=== PATIENT | female | born 1985 | race Caucasian/White ===

== ENCOUNTER 2020-11-19 11:05 | Emergency (ER) | payer SELFPAY ==
[2020-11-19 11:47] LABS: #Basophils 0.1 thou/uL (0.0-0.2); #Eosinphils 0.3 thou/uL (0.0-0.7); #Lymphocytes 3.2 thou/uL (1.20-3.40); #Monocytes 0.7 thou/uL (0.11-0.59); #Neutrophils 6.2 thou/uL (1.40-6.50); %Basophils 0.8 % (0.0-1.0); %Eosinophils 2.8 % (0.0-10.0); %Lymphocytes 30.5 % (21.0-51.0); %Monocytes 6.6 % (0.0-10.0); %Neutrophils 59.3 % (42.0-75.0); Hemoglobin 16.1 g/dL (12.0-16.0); Mean Corpuscular HGB CONC 32.2 g/dL (32.0-36.0); Mean Corpuscular Hemoglobin 28.9 pg (27.0-31.0); Mean Platelet Volume 6.8 fL (7.4-10.4); Platelet Count 371 thou/uL (130-400); RBC Distribution Width 12.3 % (11.5-14.5); Red Blood Cell (RBC) Count 5.57 mill/uL (4.20-5.40); White Blood Cell (WBC) Count 10.4 thou/uL (4.8-10.8)
[2020-11-19 11:53] LABS: Bilirubin Negative (Negative); Blood, Urine Trace (Negative); Clarity Slightly Cloudy (Clear); Glucose, Urine (Dipstick) Negative (Negative); Ketone, Urine Negative (Negative); Leukocyte Negative (Negative); Nitrite Negative (Negative); Protein, Urine (Dipstick) Negative (Neg-Trace); Urobilinogen 0.2 mg/dL (Less than 2)
[2020-11-19 11:56] LABS: Specific Gravity, Urine 1.021 (1.002-1.036)
[2020-11-19 11:57] LABS: Pregnancy Test - Urine (BHCG) Negative (Negative); Pregu Control Background? CLEAR/WHITE (CLR/WHITE); Pregu Control Bar Appear? YES (CONTROL BAR); Specific Gravity 1.021 (1.002-1.036)
[2020-11-19 12:03] LABS: Bacteria/HPF 1+ HPF (None Seen); Mucous/LPF 1+ LPF (<2+); RBC/HPF 0-3 HPF (0-3); Squamous Epithelial 0-3 HPF (0-3); WBC/HPF 0-3 HPF (0-3)
[2020-11-19 12:10] LABS: ALT (SGPT) 33 U/L (8-55); AST (SGOT) 17 U/L (5-34); Albumin 4.4 g/dL (3.5-5.0); Alkaline Phosphatase 88 U/L (40-110); Anion Gap 13 mmol/L (10-20); BUN (Urea Nitrogen) 8 mg/dL (7.0-18.7); Bilirubin, Total 0.4 mg/dL (0.2-1.2); Calc. Creatinine Clearance 0 mL/min (70-130); Calcium 9.2 mg/dL (7.8-10.44); Carbon Dioxide 25 mmol/L (22-29); Chloride 104 mmol/L (98-107); Globulin 3.5 g/dL (2.4-3.5); Glucose 87 mg/dL (70-105); Protein, Total 7.9 g/dL (6.0-8.3); Sodium 138 mmol/L (136-145)
[2020-11-19] MEDS ORDERED: Ondansetron PF 4 MG/2 ML Vial ONE (12:32)
[2020-11-19] MEDS ORDERED: Ketorolac Tromethamine 30 MG/ML VIAL ONE (12:32)
--- NOTE | 2020-11-19 14:14 | CT ---
CT ABDOMEN AND PELVIS WITH CONTRAST: 11/19/[address] was done for evaluation of right lower quadrant pain. The lung bases are clear. The liver, spleen, pancreas, adrenal glands, kidneys and abdominal aorta all appear normal. No gallbladde r was seen. The appendix was visualized and appears normal. There is no thickening of the colon or inflammatory c hange around it. The mid to distal small bowel was completely normal in size and thickness. A few loo ps of proximal jejunum were perhaps minimally thickened, but this is a marginal finding at breast, an d is also not at the site of the patient's pain. CT of the pelvis shows no pelvic masses or fluid collections. The right ovary is slightly larger than the left, but it otherwise appeared normal. There was no streaking around it or inflammatory change around it to allow the diagnosis of a torsion. No free fluid was seen. IMPRESSION: No acute abdominal or pelvic findings to explain the patient's pain. Findings discussed with Dr. Gonzalez at 1404 on 11/19/20. POS: HOME
== END 2020-11-19 14:22 | disposition home or self-care (01) ==
LOC: BURERS 11:05
DX: R10.31 Right lower quadrant pain (principal); F17.210 Nicotine dependence, cigarettes, uncomplicated
CPT/HCPCS: 74177; 80053; 81003; 81015; 81025; 83605; 85025; 87480; 87491; 87510; 87591; 87660; 96374; 96375; J1885; J2405

== ENCOUNTER 2022-08-26 10:19 | Emergency (ER) | payer SELFPAY ==
[2022-08-26] MEDS ORDERED: Iopamidol 370 76% 100 ML VIAL FS ONE (10:20)
[2022-08-26] MEDS ORDERED: Dicyclomine 20 MG TAB ONE (10:58)
[2022-08-26] MEDS ORDERED: Ondansetron PF 4 MG/2 ML Vial ONE (10:58)
[2022-08-26 11:03] LABS: #Basophils 0.1 thou/uL (0.0-0.2); #Eosinphils 0.3 thou/uL (0.0-0.7); #Lymphocytes 4.4 thou/uL (1.20-3.40); #Monocytes 0.7 thou/uL (0.11-0.59); #Neutrophils 6.4 thou/uL (1.40-6.50); %Eosinophils 2.5 % (0.0-10.0); %Lymphocytes 37.2 % (21.0-51.0); %Monocytes 5.7 % (0.0-10.0); %Neutrophils 53.6 % (42.0-75.0); Hemoglobin 17.6 g/dL (12.0-16.0); Mean Corpuscular HGB CONC 35.1 g/dL (32.0-36.0); Mean Corpuscular Hemoglobin 30.3 pg (27.0-31.0); Mean Corpuscular Volume 86.3 fL (78.0-98.0); Mean Platelet Volume 6.6 fL (7.4-10.4); Platelet Count 392 thou/uL (130-400); RBC Distribution Width 12.3 % (11.5-14.5); Red Blood Cell (RBC) Count 5.82 mill/uL (4.20-5.40); White Blood Cell (WBC) Count 11.8 thou/uL (4.8-10.8)
[2022-08-26 11:20] LABS: Bilirubin Negative (Negative); Blood, Urine Negative (Negative); Clarity Cloudy (Clear); Glucose, Urine (Dipstick) Negative (Negative); Ketone, Urine Negative (Negative); Leukocyte Trace (Negative); Nitrite Negative (Negative); Protein, Urine (Dipstick) Negative (Neg-Trace); Specific Gravity, Urine 1.025 (1.005-1.030); Urobilinogen 0.2 mg/dL (Less than 2)
[2022-08-26 11:22] LABS: ALT (SGPT) 22 U/L (8-55); AST (SGOT) 13 U/L (5-34); Albumin 4.5 g/dL (3.5-5.0); Alkaline Phosphatase 75 U/L (40-110); Anion Gap 14 mmol/L (10-20); BUN (Urea Nitrogen) 10 mg/dL (7.0-18.7); Bilirubin, Total 0.5 mg/dL (0.2-1.2); Calc. Creatinine Clearance 0 mL/min (70-130); Calcium 9.4 mg/dL (7.8-10.44); Carbon Dioxide 23 mmol/L (22-29); Chloride 105 mmol/L (98-107); Estimated GFR 112; Globulin 3.2 g/dL (2.4-3.5); Glucose 93 mg/dL (70-105); Potassium 4.1 mmol/L (3.5-5.1); Protein, Total 7.7 g/dL (6.0-8.3); Sodium 138 mmol/L (136-145)
[2022-08-26 11:32] LABS: Pregnancy Test - Urine (BHCG) Negative (Negative); Pregu Control Background? CLEAR/WHITE (CLR/WHITE); Pregu Control Bar Appear? YES (CONTROL BAR); Specific Gravity 1.025 (1.002-1.036)
[2022-08-26 11:45] LABS: Bacteria/HPF 1+ HPF (None Seen); RBC/HPF None Seen HPF (0-3); WBC/HPF 0-3 HPF (0-3)
== END 2022-08-26 12:28 | disposition home or self-care (01) ==
LOC: BURERS 10:19
DX: K59.00 Constipation, unspecified (principal); F17.210 Nicotine dependence, cigarettes, uncomplicated; E03.9 Hypothyroidism, unspecified; Z79.899 Other long term (current) drug therapy
CPT/HCPCS: 74177; 80053; 81003; 81015; 81025; 85025; 96374; J2405; Q9967

== ENCOUNTER 2024-04-04 16:39 | Emergency (ER) | payer SELFPAY ==
[2024-04-04 17:22] LABS: #Basophils 0.1 thou/uL (0.0-0.2); #Eosinphils 0.3 thou/uL (0.0-0.7); #Lymphocytes 4.2 thou/uL (1.20-3.40); #Monocytes 0.8 thou/uL (0.11-0.59); #Neutrophils 9.5 thou/uL (1.40-6.50); %Basophils 0.9 % (0.0-1.0); %Eosinophils 1.9 % (0.0-10.0); %Monocytes 5.6 % (0.0-10.0); %Neutrophils 63.6 % (42.0-75.0); Hematocrit 52.4 % (36.0-47.0); Hemoglobin 16.7 g/dL (12.0-16.0); Mean Corpuscular HGB CONC 31.9 g/dL (32.0-36.0); Mean Corpuscular Hemoglobin 28.7 pg (27.0-31.0); Mean Corpuscular Volume 89.9 fl (78.0-98.0); Mean Platelet Volume 6.2 fL (7.4-10.4); Platelet Count 429 10x3/uL (130-400); RBC Distribution Width 12.3 % (11.5-14.5); Red Blood Cell (RBC) Count 5.83 mill/uL (4.20-5.40); White Blood Cell (WBC) Count 14.9 10x3/uL (4.8-10.8)
[2024-04-04 17:39] LABS: ALT (SGPT) 22 U/L (8-55); AST (SGOT) 14 U/L (5-34); Albumin 4.4 g/dL (3.5-5.0); Alkaline Phosphatase 89 U/L (40-110); Anion Gap 14 mmol/L (10-20); BUN (Urea Nitrogen) 10 mg/dL (7.0-18.7); Bilirubin, Total 0.3 mg/dL (0.2-1.2); Calc. Creatinine Clearance 0 mL/min (70-130); Calcium 9.2 mg/dL (7.8-10.44); Carbon Dioxide 22 mmol/L (22-29); Chloride 105 mmol/L (98-107); Estimated GFR 105; Globulin 3.3 g/dL (2.4-3.5); Glucose 100 mg/dL (70-105); Protein, Total 7.7 g/dL (6.0-8.3); Sodium 137 mmol/L (136-145)
[2024-04-04 17:48] LABS: BHCG - Serum Negative (NEGATIVE); Pregs Control Background? CLEAR/WHITE (CLR/WHITE); Pregs Control Bar Appear? YES (CONTROL BAR)
[2024-04-04] MEDS ORDERED: predniSONE 20 MG TAB ONE (17:58)
== END 2024-04-04 18:02 | disposition home or self-care (01) ==
LOC: BURERS 16:39
DX: B34.9 Viral infection, unspecified (principal); F17.210 Nicotine dependence, cigarettes, uncomplicated
CPT/HCPCS: 36415; 80053; 84443; 84703; 85025; 99283; J7512

== ENCOUNTER 2024-10-31 04:44 | Emergency (ER) | payer SELFPAY ==
[2024-10-31] MEDS ORDERED: Ketorolac Tromethamine 30 MG (1 mL) VIAL ONE (05:11)
[2024-10-31] MEDS ORDERED: Metoclopramide HCl 10 MG (2 mL) VIAL ONE (05:11)
[2024-10-31] MEDS ORDERED: Prochlorperazine 10 MG/2 ML VIAL ONE (05:11)
== END 2024-10-31 06:08 | disposition home or self-care (01) ==
LOC: BURERS 04:44
DX: G43.909 Migraine, unspecified, not intractable, without status migrainosus (principal); R11.0 Nausea; F17.210 Nicotine dependence, cigarettes, uncomplicated
CPT/HCPCS: 96374; 96375; J0780; J1885; J2765